=== PATIENT | male | born 1975 | race Caucasian/White ===

== ENCOUNTER 2019-01-28 13:14 | Emergency (ER) | payer OTHER ==
[2019-01-28 13:18] VITALS: BMI 34.4
[2019-01-28] MEDS ORDERED: DIPHTH,PERTUSS(ACELL),TET 0.5 ML DISP.SYRIN IM ONE ×2 (13:46→13:51)
[2019-01-28 13:49] VITALS: BP 133/63; PULSE 72; TEMP 98.6
--- NOTE | 2019-01-28 13:50 | PDOC ---
History of Present Illness - General Chief Complaint: Laceration Stated Complaint: LEFT ARM LAC Time Seen by Provider: 01/28/19 13:16 Past History - Past Medical History Allergies/Adverse Reactions: Allergies Allergy/AdvReac Type Severity Reaction Status Date / Time Penicillins Allergy Verified 01/28/19 13:15 Home Medications: Ambulatory Orders NK [No Known Home Medication] 01/28/19 CVA: No COPD: No CHF: No Diabetes: No HTN: No Hypercholesterolemia: No - Suicide/Smoking/Psychosocial Hx Smoking History: Current every day smoker Have you smoked in the past 12 months: Yes Number of Cigarettes Smoked Daily: 10 Information on smoking cessation initiated: Yes 'Breaking Loose' booklet given: 12/06/13 Hx Alcohol Use: No Drug/Substance Use Hx: No *Physical Exam - Vital Signs Last Vital Signs Temp Pulse Resp BP Pulse Ox 0/0 L 01/28/19 13:15 *DC/Admit/Observation/Transfer Diagnosis at time of Disposition: Laceration - Discharge Dispostion Disposition: HOME Condition at time of disposition: Stable Decision to Admit order: No - Referrals - Patient Instructions Printed Discharge Instructions: DTaP Vaccine Additional Instructions: Keep clean and dry - Post Discharge Activity
== END 2019-01-28 13:57 | disposition home or self-care (01) ==
LOC: FER 13:14
PROC: 3E0233Z Introduction of Anti-inflammatory into Muscle, Percutaneous Approach (ICD-10-PCS; principal; 2019-01-28)
DX: S41.112A Laceration without foreign body of left upper arm, initial encounter (principal); W45.8XXA Other foreign body or object entering through skin, initial encounter; Y93.89 Activity, other specified; Y92.89 Other specified places as the place of occurrence of the external cause; F17.210 Nicotine dependence, cigarettes, uncomplicated
CPT/HCPCS: 90715; 99282-25

== ENCOUNTER 2021-04-18 08:37 | Emergency (ER) | payer OTHER, SELFPAY ==
[2021-04-18 08:46] VITALS: BP 154/115; PULSE 99; TEMP 98.7; BMI 31.8
[2021-04-18 09:53] LABS: ALBUMIN 3.7 g/dl (3.4-5.0); CREATININE 0.7 mg/dl (0.55-1.3); TOT PROT 6.9 g/dl (6.4-8.2)
[2021-04-18 11:17] LABS: BASO % 0.7 % (0-2.0); EOS % 0.5 % (0-4.5); HEMATOCRIT 45.3 % (35.4-49); HEMOGLOBIN 16.1 GM/dL (11.7-16.9); LYMPH % 17.5 % (8-40); MCH 34.2 pg (25.7-33.7); MCHC 35.5 g/dl (32.0-35.9); MEAN CELL VOLUME 96.1 fl (80-96); MEAN PLT VOLUME 7.7 fl (7.5-11.1); MONO % 6.7 % (3.8-10.2); NEUT % 74.6 % (42.8-82.8); PLATELET COUNT 202 10^3/uL (134-434); RBC 4.72 M/mm3 (4.00-5.60); RDW 13.5 % (11.9-15.9); WHITE BLOOD COUNT 9.6 K/mm3 (4.0-10.0)
[2021-04-18] MEDS ORDERED: ACETAMINOPHEN 1000 MG/100 ML VIAL IVPB ONE (11:18)
[2021-04-18] MEDS ORDERED: ACETAMINOPHEN INJECTION 100 ML IVPB ONE (11:25)
== END 2021-04-18 13:15 | disposition left against medical advice (07) ==
LOC: FER 08:37
PROC: 3E033GC Introduction of Other Therapeutic Substance into Peripheral Vein, Percutaneous Approach (ICD-10-PCS; principal; 2021-04-18)
DX: K61.1 Rectal abscess (principal)
CPT/HCPCS: 36415; 72193-TC; 80053; 85025; 99285-25; J0131; Q9967

== ENCOUNTER 2023-10-01 20:48 | Observation (INO) | payer OTHER ==
[2023-10-01 21:47] LABS: HEMATOCRIT 52.4 % (35.4-49); HEMOGLOBIN 17.5 G/dL (11.7-16.9); MCH 32.2 pg (25.7-33.7); MCHC 33.3 g/dl (32.0-35.9); MEAN CELL VOLUME 96.5 fl (80-96); MEAN PLT VOLUME 7.5 fl (7.5-11.1); PLATELET COUNT 193.5 10^3/uL (134-434); RBC 5.43 10^6/uL (4.00-5.60); RDW 13.7 % (11.9-15.9); WHITE BLOOD COUNT 10.4 10^3/uL (4.0-10.8)
[2023-10-01 21:59] LABS: ALBUMIN 4.3 g/dl (3.4-5.0); BILIRUBIN,TOTAL 0.7 mg/dl (0.2-1); CALCIUM 10.1 mg/dl (8.5-10.1); CREATININE 0.8 mg/dl (0.6-1.3); POTASSIUM 3.7 mmol/L (3.5-5.1); TOT PROT 7.2 g/dl (6.4-8.2)
[2023-10-01] MEDS: SODIUM CHLORIDE 1,000 ML IV STA (22:05)
[2023-10-01 22:45] LABS: PLATELET ESTIMATE ADEQUATE
[2023-10-02 01:44] VITALS: RESP 18
[2023-10-02 06:34] VITALS: BMI 16.7
[2023-10-02 08:16] LABS: CALCIUM 9.5 mg/dl (8.5-10.1); CREATININE 0.7 mg/dl (0.6-1.3); PHOSPHOROUS 3.6 (2.5-4.9); POTASSIUM 4.3 mmol/L (3.5-5.1)
[2023-10-02 09:02] LABS: BASO % 0.6 % (0-2.0); EOS % 1.6 % (0-4.5); HEMATOCRIT 46.6 % (35.4-49); HEMOGLOBIN 15.7 GM/dL (11.7-16.9); LYMPH % 31.2 % (8-40); MCH 32.4 pg (25.7-33.7); MCHC 33.7 g/dl (32.0-35.9); MEAN CELL VOLUME 96.2 fl (80-96); MEAN PLT VOLUME 7.7 fl (7.5-11.1); MONO % 6.9 % (3.8-10.2); NEUT % 59.7 % (42.8-82.8); PLATELET COUNT 208 10^3/uL (134-434); RBC 4.84 M/mm3 (4.00-5.60); RDW 13.9 % (11.9-15.9); WHITE BLOOD COUNT 9.1 K/mm3 (4.0-10.0)
[2023-10-02] MEDS: NICOTINE 7 MG/24 HOURS TOPICAL PATCH TD SCH (09:46)
[2023-10-02 10:06] VITALS: BP 129/72; PULSE 76; TEMP 97.2
== END 2023-10-02 10:45 | disposition home or self-care (01) ==
LOC: FER 20:48 → FM/S 10-02 00:08
PROVIDERS: ADMIT Internal Medicine; ATTEND Internal Medicine
PROC: 3E0337Z Introduction of Electrolytic and Water Balance Substance into Peripheral Vein, Percutaneous Approach (ICD-10-PCS; principal; 2023-10-02)
DX: R77.8 Other specified abnormalities of plasma proteins (principal); R06.83 Snoring; E66.9 Obesity, unspecified; R06.02 Shortness of breath; F17.200 Nicotine dependence, unspecified, uncomplicated; Z88.0 Allergy status to penicillin
CPT/HCPCS: 36415; 71046-TC-FY; 80048; 80053; 83735; 83880; 84100; 84484; 85025; 85027; 93005; 96360; 99285-25; G0378